=== PATIENT | female | born 2000 | race Caucasian/White ===

== ENCOUNTER 2019-05-24 16:50 | Outpatient (CLI) | payer MEDICAID, OTHER ==
[~2019-05-24] VITALS: Ht 170.2 cm; Wt 123.9 kg
[2019-05-24 17:19] VITALS: Ht 170.2 cm; Wt 123.9 kg
[2019-05-24 17:20] VITALS: BP 122/71; PULSE 100; RESP 19
== END 2019-05-24 21:15 | disposition home or self-care (01) ==
LOC: OBT 16:50 → L-D 16:51 → OBT 21:15
PROVIDERS: ATTEND Obstetrics & Gynecology
DX: O26.843 Uterine size-date discrepancy, third trimester (principal); Z3A.38 38 weeks gestation of pregnancy
CPT/HCPCS: 76815; 76818; Z7500; G0463